=== PATIENT | male | born 1985 | race Two or more races ===

== ENCOUNTER 2021-07-29 07:52 | Day surgery (SDC) | payer OTHER ==
[2021-07-29] MEDS ORDERED: PERCOCET 5-3251 EACH PO (13:17)
== END 2021-07-29 17:00 | disposition home or self-care (01) ==
LOC: CIR.AMB 07:52
PROVIDERS: ATTEND Surgery
DX: K60.3 Anal fistula (principal); Z20.822 Contact with and (suspected) exposure to COVID-19

== ENCOUNTER 2021-12-02 06:03 | Day surgery (SDC) | payer OTHER ==
[~2021-12-02 06:03] MED LIST: PERCOCET 5-3251 EACH PO
[2021-12-02] MEDS ORDERED: PERCOCET 5-3251 EACH PO (10:38)
== END 2021-12-02 18:40 | disposition home or self-care (01) ==
LOC: CIR.AMB 06:03
PROVIDERS: ATTEND Surgery
DX: K60.3 Anal fistula (principal); K62.89 Other specified diseases of anus and rectum; Z20.822 Contact with and (suspected) exposure to COVID-19